=== PATIENT | female | born 1965 | race Caucasian/White ===

== ENCOUNTER 2018-05-03 11:28 | Emergency (ER) | payer OTHER ==
[2018-05-03 12:00] LABS: Absolute Lymphocytes (CBC) 1.4 K/uL (0.7-4.9); Absolute Monocytes 0.5 K/uL (0.1-1.3); Absolute Neutrophil 5.2 K/uL (1.8-8.0); Basophils % 0.5 % (0-1.3); Eosinophils % 1.2 % (0-4.4); Hematocrit 39.4 % (36.0-45.0); Lymphocytes % 19.2 % (15.3-44.8); MCH 30.6 pg (27.0-35.0); MCV 86.9 fL (80-100); MPV 8.3 fL (7.6-11.3); Monocytes % 6.9 % (3.3-12.3); RBC Red Blood Cell Count 4.54 M/uL (3.86-4.86)
[2018-05-03 12:13] LABS: Protime INR 1.02
--- NOTE | 2018-05-03 12:21 | RAD REPORT ---
EXAM DESCRIPTION: CT - Ct Stroke Brain Wo Cont - 05/03/2018 12:01 pm CLINICAL HISTORY: aphasia COMPARISON: 2007 TECHNIQUE: Computed axial tomography of the head was obtained. IV contrast was not requested. All CT scans are performed using dose optimization technique as appropriate and may include automated exposure control or mA/KV adjustment according to patient size. FINDINGS: Suboccipital craniotomy has been performed. 25 millimeter area of increased density within the posterior fossa related to an AVM repair. Low-density within the cerebellum likely gliosis. An acute intracranial bleed is not seen. The ventricles are normal in caliber. No extra-axial fluid collection is noted. Fluid within the sinuses/ mastoids is not seen. IMPRESSION: No acute intracranial abnormality is seen. The exam discussed with Adis in the emergency room proximally 11:47 a.m. May 03, 2018
--- NOTE | 2018-05-03 12:29 | RAD REPORT ---
EXAM DESCRIPTION: CTHead angio05/03/2018 11:54 am CLINICAL HISTORY: aphasia COMPARISON: May 03, [address] TECHNIQUE: CT angiogram of the head was obtained. 50 cc Isovue 370 was intravenously. 3D MIPS recons truction performed All CT scans are performed using dose optimization technique as appropriate and may include automated exposure control or mA/KV adjustment according to patient size. FINDINGS: The basilar, internal carotid, anterior cerebral, middle cerebral and posterior cerebral a rteries are normal caliber. An aneurysm is not seen. origin posterior cerebral artery Postsurgical changes of a posterior fossa AVM repair. No evidence of residual AVM A significant stenosis is not noted. IMPRESSION: No acute abnormality is displayed
[2018-05-03 12:44] LABS: Urine Blood TRACE (NEG); Urine Glucose NEGATIVE (NEG); Urine Protein NEGATIVE (NEG); Urine pH 6.5 (5.0-7.0)
--- NOTE | 2018-05-03 12:45 | RAD REPORT ---
EXAM DESCRIPTION: Fer Single View05/03/2018 12:03 pm CLINICAL HISTORY: cva COMPARISON: March 2017 FINDINGS: The lungs appear clear of acute infiltrate. The heart is normal size IMPRESSION: No acute abnormalities displayed
[2018-05-03] MEDS ORDERED: ASPIRIN 81 MG CHEWABLE TABLET ONE (13:34)
[2018-05-03] MEDS ORDERED: FOLIC ACID 5 MG/ML VIAL ONE (13:37)
--- NOTE | 2018-05-03 13:40 | EDPHYS ---
Physician Documentation [facility] Name: Vanessa Stone Age: 52 yrs Sex: Female : 1965 Arrival Date: 05/03/2018 Time: 11:29 Bed 4 Private MD: Criss Coronado H ED Physician Artur He HPI: 05/03 11:35 This 52 yrs old Female presents to ER via Wheelchair with complaints of jr8 Dizziness, Confusion. 11:35 The patient's problem is reported as a facial droop, on left, dysphasia, slurred jr8 speech, slow speech, expressive aphasia. Onset: The symptoms/episode began/occurred acutely, today, at 09:30. Duration: This was a single incident. The symptoms are alleviated by nothing. The symptoms are aggravated by nothing. Associated signs and symptoms: Pertinent positives: dizziness. Severity of symptoms: At their worst the symptoms were moderate in the emergency department the symptoms have improved mildly. Patient's baseline: Neuro: alert and fully oriented, Motor: no deficits, Ambulation: walks without assistance, Speech: normal. The patient has not experienced similar symptoms in the past. The patient has not recently seen a physician. 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 - Ebola Screening: : No symptoms or risks identified at this time. - Social history:: Smoking status: unknown. ROS: 11:35 Eyes: Negative for injury, pain, redness, and discharge, ENT: Negative for injury, jr8 pain, and discharge, Neck: Negative for injury, pain, and swelling, Cardiovascular: Negative for chest pain, palpitations, and edema, Respiratory: Negative for shortness of breath, cough, wheezing, and pleuritic chest pain, Abdomen/GI: Negative for abdominal pain, nausea, vomiting, diarrhea, and constipation, Back: Negative for injury and pain, MS/Extremity: Negative for injury and deformity, Skin: Negative for injury, rash, and discoloration. 11:35 Neuro: Positive for dizziness, speech changes. Exam: 11:35 Radiologist reports: CT without acute finding jr8 11:35 Head/Face: Normocephalic, atraumatic. Eyes: Pupils equal round and reactive to light, extra-ocular motions intact. Lids and lashes normal. Conjunctiva and sclera are non-icteric and not injected. Cornea within normal limits. Periorbital areas with no swelling, redness, or edema. ENT: Nares patent. No nasal discharge, no septal abnormalities noted. Tympanic membranes are normal and external auditory canals are clear. Oropharynx with no redness, swelling, or masses, exudates, or evidence of obstruction, uvula midline. Mucous membranes moist. Neck: Trachea midline, no thyromegaly or masses palpated, and no cervical lymphadenopathy. Supple, full range of motion without nuchal rigidity, or vertebral point tenderness. No Meningismus. Cardiovascular: Regular rate and rhythm with a normal S1 and S2. No gallops, murmurs, or rubs. Normal PMI, no JVD. No pulse deficits. Respiratory: Lungs have equal breath sounds bilaterally, clear to auscultation and percussion. No rales, rhonchi or wheezes noted. No increased work of breathing, no retractions or nasal flaring. Abdomen/GI: Soft, non-tender, with normal bowel sounds. No distension or tympany. No guarding or rebound. No evidence of tenderness throughout. Back: No spinal tenderness. No costovertebral tenderness. Full range of motion. Skin: Warm, dry with normal turgor. Normal color with no rashes, no lesions, and no evidence of cellulitis. MS/ Extremity: Pulses equal, no cyanosis. Neurovascular intact. Full, normal range of motion. 11:35 Neuro: Orientation: to person, place, time \\T\\ situation. Mentation: is normal, able to follow commands, Memory: is normal, immediate memory is intact, recent memory is intact, remote memory is intact, Cranial nerves: CN I not tested, CN II- XII are normal as tested, visual dee are intact. extraocular movements are intact, Facial palsy and sensory deficits are absent. Nystagmus is absent. Speech is clear and appropriate. Tongue strength is normal, Cerebellar function: normal finger to nose testing, heel to [place] testing is normal, Motor: moves all fours, strength is 5/5 in all extremities, Sensation: no obvious gross deficits, Gait: not tested. seizure activity, is not displayed by the patient, Abnormal movements: there are no abnormal movements. Vital Signs: 11:45 BP 122 / 82; Pulse 61; Resp 16 S; Temp 97.6(TE); Pulse Ox 100% on R/A; Pain 0/10; jl7 12:30 BP 132 / 77; Pulse 66; Resp 16 S; Pulse Ox 98% on R/A; jl7 14:03 BP 140 / 93; Pulse 67; Resp 16 S; Pulse Ox 98% on R/A; jl7 NIH Stroke Scale Scores: 11:35 NIHSS Score: 0 jr8 11:45 NIHSS Score: 0 jl7 MDM: 11:39 Patient medically screened. jr8 13:33 Data reviewed: vital signs, nurses notes, lab test result(s), EKG, radiologic studies, jr8 CT scan, plain films. Data interpreted: Pulse oximetry: on room air is 100 %. Interpretation: normal. Counseling: I had a detailed discussion with the patient and/or guardian regarding: the historical points, exam findings, and any diagnostic results supporting the discharge/admit diagnosis, lab results, radiology results, the need to transfer to another facility, for higher level of care, [facility] does not immediately have the required specialist. ED course: [facility] Neurology Accepted patient for further evaluation of CVA vs. TIA. ED course: Patient near baseline now. Feels much better. stated that she feels just generally weak and "foggy". Because patient has near complete resolution of symptoms. Patient is not a candidate for tPA. Patient will be transferred for MRI for further stroke evaluation . 05/03 11:41 Order name: Basic Metabolic Panel; Complete Time: 12:38 05/03 11:41 Order name: CBC with Diff; Complete Time: 12:38 05/03 11:41 Order name: Protime (+inr); Complete Time: 12:38 05/03 11:41 Order name: Ptt, Activated; Complete Time: 12:38 05/03 11:41 Order name: CT Stroke Brain w/o Contrast; Complete Time: 12:38 05/03 12:17 Order name: Urine Dipstick--Ancillary (enter results); Complete Time: 12:50 gm 05/03 11:41 Order name: Stroke CXR 1 View; Complete Time: 12:50 05/03 11:41 Order name: EKG; Complete Time: 11:42 05/03 11:41 Order name: Accucheck; Complete Time: 12:10 05/03 11:41 Order name: Cardiac monitoring; Complete Time: 12:10 05/03 11:41 Order name: EKG - Nurse/Tech; Complete Time: 12:10 05/03 11:45 Order name: Head angio; Complete Time: 12:38 EDMS 05/03 11:41 Order name: IV Saline Lock; Complete Time: 12:05/03 11:41 Order name: Labs collected and sent; Complete Time: 12:05/03 11:41 Order name: NPO; Complete Time: 12:05/03 11:41 Order name: O2 Per Protocol; Complete Time: 12:09 05/03 11:41 Order name: O2 Sat Monitoring; Complete Time: 12:05/03 11:41 Order name: Stroke Swallow Screen; Complete Time: 12: Administered Medications: 13:55 Drug: Aspirin 81 mg Route: PO; jl7 13:58 Follow up: Response: No adverse reaction jl7 13:55 Drug: foLIC Acid 1 mg Route: IVPB; Site: right antecubital; jl7 13:56 Follow up: Response: No adverse reaction; IV Status: Completed infusion jl7 Point of Care Testing: Blood Glucose: 11:45 Blood Glucose: 102 mg/dL; jl7 Ranges: Critical Glucose Levels:Adult <50 mg/dl or >400 mg/dl <40 mg/dl or >180 mg/dl Disposition: 16:30 Co-signature as Attending Physician, Artur He MD. Disposition: 05/03/18 13:40 Transfer ordered to [facility]. Diagnosis is Cerebral infarction - vs. TIA. - Reason for transfer: Higher level of care. - Accepting physician is Dr. Palomo . - Condition is Stable. - Problem is new. - Symptoms have improved. NIH Stroke Scale - NIH Stroke Score Date: 05/03/2018 Time: 11:35 Total Score = 0 1a. Level of Consciousness (LOC) - 0(Alert) 1b. Level of Consciousness (LOC) (Year \\T\\ Age) - 0(Both) 1c. LOC Commands (Open \\T\\ Closes Eyes/Aircraft Accessories Mechanic) - 0(Both) 2. Best Gaze (Lateral Gaze Paresis) - 0(Normal) 3. Visual Field Loss - 0(No visual loss) 4. Facial Palsy - 0(Normal) 5a. Left Arm: Motor (10-second hold) - 0(No drift) 5b. Right Arm: Motor (10-second hold) - 0(No drift) 6a. Left Leg: Motor (5-second hold - always test supine) - 0(No drift) 6b. Right Leg: Motor (5-second hold - always test supine) - 0(No drift) 7. Limb Ataxia (finger/nose \\T\\ heel/[place] - test with eyes open) - 0(Absent) 8. Sensory Loss (pinprick arms/legs/face) - 0(Normal) 9. Best Language: Aphasia (description/naming/reading) - 0(No aphasia) 10. Dysarthria (speech clarity - read or repeat words) - 0(Normal) 11. Extinction and Inattention (visual/tactile/auditory/spatial/personal) - 0(No abnormality) Initials: jr8 NIH Stroke Scale - NIH Stroke Score Date: 05/03/2018 Time: 11:45 Total Score = 0 1a. Level of Consciousness (LOC) - 0(Alert) 1b. Level of Consciousness (LOC) (Year \\T\\ Age) - 0(Both) 1c. LOC Commands (Open \\T\\ Closes Eyes/Aircraft Accessories Mechanic) - 0(Both) 2. Best Gaze (Lateral Gaze Paresis) - 0(Normal) 3. Visual Field Loss - 0(No visual loss) 4. Facial Palsy - 0(Normal) 5a. Left Arm: Motor (10-second hold) - 0(No drift) 5b. Right Arm: Motor (10-second hold) - 0(No drift) 6a. Left Leg: Motor (5-second hold - always test supine) - 0(No drift) 6b. Right Leg: Motor (5-second hold - always test supine) - 0(No drift) 7. Limb Ataxia (finger/nose \\T\\ heel/[place] - test with eyes open) - 0(Absent) 8. Sensory Loss (pinprick arms/legs/face) - 0(Normal) 9. Best Language: Aphasia (description/naming/reading) - 0(No aphasia) 10. Dysarthria (speech clarity - read or repeat words) - 0(Normal) 11. Extinction and Inattention (visual/tactile/auditory/spatial/personal) - 0(No abnormality) Initials: jl7 Signatures: Dispatcher [employer] EDAlbertina Johns, RN RN aa5 Leeroy Long PA PA jr8 Celi Neff RN RN jl7 Artur He MD MD gs Corrections: (The following items were deleted from the chart) 13:44 13:40 05/03/2018 13:40 Transfer ordered to [facility]. jr8 Diagnosis is Cerebral infarction. Reason for transfer: Higher level of care. Accepting physician is [facility]. Condition is Stable. Problem is new. Symptoms have improved. jr8 15:35 13:44 05/03/2018 13:40 Transfer ordered to [facility]. jl7 Diagnosis is Cerebral infarction - vs. TIA. Reason for transfer: Higher level of care. Accepting physician is Dr. Palomo . Condition is Stable. Problem is new. Symptoms have improved. jr8
--- NOTE | 2018-05-03 13:40 | ER ---
Nurse's Notes [facility] Name: Vanessa Stone Age: 52 yrs Sex: Female : 1965 Arrival Date: 05/03/2018 Time: 11:29 Bed 4 Private MD: Criss Coronado H Diagnosis: Cerebral infarction-vs. TIA Presentation: 05/03 11:29 Presenting complaint: Patient states: "I was driving back from the store and I started aa5 having difficulty thinking of the words and I couldn't remember how to use my phone to call my family". Pt states "I also started drooling a little bit". Aphasia noted at this time. 11:29 Acuity: INO 2 aa5 11:29 Method Of Arrival: Wheelchair aa5 11:33 Transition of care: patient was not received from another setting of care. Onset of aa5 symptoms was May 03, 2018 at 09:30. 11:33 Care prior to arrival: None. aa5 11:35 An acute neurological deficit is present. The charge nurse has been notified. The jl7 patient has been moved to a treatment area. The patients blood glucose was checked before arriving to the hospital and was found to be normal. Risk Assessment: Do you want to hurt yourself or someone else? Patient reports no desire to harm self or others. Initial Sepsis Screen: Does the patient meet any 2 criteria? No. Patient's initial sepsis screen is negative. Does the patient have a suspected source of infection? No. Patient's initial sepsis screen is negative. Triage Assessment: 11:45 The onset of the patients symptoms was May 03, 2018 at 09:30. General: Appears in jl7 no apparent distress. uncomfortable, Behavior is cooperative, appropriate for age, anxious. Pain: Denies pain. EENT: No signs and/or symptoms were reported regarding the EENT system. Neuro: Level of Consciousness is awake, alert, obeys commands, Oriented to person, place, time, situation, Reports Confusion that has resolved at this time.. Cardiovascular: Patient's skin is warm and dry. Respiratory: Airway is patent Respiratory effort is even, unlabored, Respiratory pattern is regular, symmetrical. GI: No signs and/or symptoms were reported involving the gastrointestinal system. : No signs and/or symptoms were reported regarding the genitourinary system. Derm: Skin is pink, warm \\T\\ dry. Musculoskeletal: No signs and/or symptoms reported regarding the musculoskeletal system. 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 - Ebola Screening: : No symptoms or risks identified at this time. - Social history:: Smoking status: unknown. Screenin:45 Abuse screen: Denies threats or abuse. Denies injuries from another. Nutritional sg screening: No deficits noted. Tuberculosis screening: No symptoms or risk factors identified. Never had TB. Fall Risk None identified. 11:50 The patient has not been NPO before screening. The patient is currently on the jl7 following diet: Regular The patient is alert, able to follow commands. The patient does not exhibit slurred or garbled speech The patient is not exhibiting difficulty speaking. The patient does not exhibit difficulty understanding words. The patient is unable to swallow own secretions without drooling or the need for suction. Bedside swallow screening discontinued. Patient kept NPO until cleared by Speech Therapy or Physician. The patient failed the bedside swallow screening. The patient will be kept NPO until cleared by Speech Therapy or Physician. Provider notified of bedside swallow screening results: Leeroy CHAND. Assessment: 11:35 Reassessment: Code Stroke called to ER. iw 11:38 Reassessment: pt transported to CT with Rom SAMUEL. iw 11:45 The patient has not been NPO before screening. The patient is currently on the jl7 following diet: regular The patient is alert, and able to follow commands. The patient does not exhibit slurred or garbled speech. The patient is not exhibiting difficulty speaking. The patient does not exhibit difficulty understanding words. The patient is unable to swallow own secretions without drooling or the need for suction. Bedside swallow screening discontinued. Patient kept NPO until cleared by Speech Therapy or Physician. stopped eval stopped eval The patient failed the bedside swallow screening. The patient will be kept NPO until cleared by Speech Therapy or Physician. Provider notified of bedside swallow screening results: Leeroy CHAND. T-PA (Activase) Screening: Indications: No evidence of intracranial hemorrhage or CT of head and no evidence of peripheral hemorrhage or recent CVA: Yes. 11:45 Pain: Denies pain. Neuro: Level of Consciousness is awake, alert, obeys commands, jl7 Oriented to person, place, time, situation, Reports Confusion that has resolved. 11:48 Reassessment: Dr. Guerrier reports negative CT. iw 12:45 Reassessment: Patient appears in no apparent distress at this time. Patient and/or jl7 family updated on plan of care and expected duration. Pain level reassessed. Patient is alert, oriented x 3, equal unlabored respirations, skin warm/dry/pink. 13:45 Reassessment: Patient appears in no apparent distress at this time. Patient and/or jl7 family updated on plan of care and expected duration. Pain level reassessed. Patient is alert, oriented x 3, equal unlabored respirations, skin warm/dry/pink. 14:45 Reassessment: No changes from previously documented assessment. Patient and/or family jl7 updated on plan of care and expected duration. Pain level reassessed. Patient is alert, oriented x 3, equal unlabored respirations, skin warm/dry/pink. Report given to receiving nurse, family updated. Vital Signs: 11:45 BP 122 / 82; Pulse 61; Resp 16 S; Temp 97.6(TE); Pulse Ox 100% on R/A; Pain 0/10; jl7 12:30 BP 132 / 77; Pulse 66; Resp 16 S; Pulse Ox 98% on R/A; jl7 14:03 BP 140 / 93; Pulse 67; Resp 16 S; Pulse Ox 98% on R/A; jl7 NIH Stroke Scale Scores: 11:35 NIHSS Score: 0 jr8 11:45 NIHSS Score: 0 jl7 ED Course: 11:29 Patient arrived in ED. mr 11:29 Criss Coronado DO is Private Physician. mr 11:29 Arm band placed on. aa5 11:39 [facility]oy Long [facility]. jr8 11:39 Artur He MD is Attending Physician. jr8 11:42 Triage completed. aa5 11:45 Patient has correct armband on for positive identification. Placed in gown. Bed in low jl7 position. Call light in reach. Side rails up X2. silhouette artist on. Pulse ox on. NIBP on. Warm blanket given. 11:48 Initial lab(s) drawn, by me, sent to lab. Inserted saline lock: 22 gauge in right sg antecubital area, using aseptic technique. Blood collected. 11:51 CT completed. Patient moved to CT via stretcher. Patient moved back from CT. cw1 11:55 Head angio In Process Unspecified. EDMS 11:55 Rom Coello, RN is Primary Nurse. sg 12:01 X-ray completed. Portable x-ray completed in exam room. Patient tolerated procedure ka well. 12:01 CT Stroke Brain w/o Contrast In Process Unspecified. EDMS 12:01 Stroke CXR 1 View In Process Unspecified. EDMS 12:01 CT completed. Patient tolerated procedure well. Patient moved back from CT. 13:12 initiated transfer with Rocio at [facility]. 13:[address] Ellison with Leeroy CHAND for patient consult transfer. 13:41 connected the hospitalist from [facility] with Leeroy CHAND for patient transfer consultation. 13:49 administrative approval was given by rocio valencia trans. coord. /Dr Colby accepted the patient in transfer/ Pt going to [address]. report to be called to [phone]. 15:29 No provider procedures requiring assistance completed. Patient transferred, IV remains jl7 in place. intact, No redness/swelling at site. Administered Medications: 13:55 Drug: Aspirin 81 mg Route: PO; jl7 13:58 Follow up: Response: No adverse reaction jl7 13:55 Drug: foLIC Acid 1 mg Route: IVPB; Site: right antecubital; jl7 13:56 Follow up: Response: No adverse reaction; IV Status: Completed infusion jl7 Point of Care Testing: Blood Glucose: 11:45 Blood Glucose: 102 mg/dL; jl7 Ranges: Outcome: 13:40 ER care complete, transfer ordered by . whitney 15:29 Transferred by ground EMS to [facility], Transfer form completed. jl7 X-rays sent w/ patient. 15:29 Condition: stable 15:29 Discharge instructions given to patient, family, Instructed on the need for transfer, Demonstrated understanding of instructions. 15:35 Patient left the ED. jl7 NIH Stroke Scale - NIH Stroke Score Date: 05/03/2018 Time: 11:35 Total Score = 0 1a. Level of Consciousness (LOC) - 0(Alert) 1b. Level of Consciousness (LOC) (Year \\T\\ Age) - 0(Both) 1c. LOC Commands (Open \\T\\ Closes Eyes/Hand Funnel Coater) - 0(Both) 2. Best Gaze (Lateral Gaze Paresis) - 0(Normal) 3. Visual Field Loss - 0(No visual loss) 4. Facial Palsy - 0(Normal) 5a. Left Arm: Motor (10-second hold) - 0(No drift) 5b. Right Arm: Motor (10-second hold) - 0(No drift) 6a. Left Leg: Motor (5-second hold - always test supine) - 0(No drift) 6b. Right Leg: Motor (5-second hold - always test supine) - 0(No drift) 7. Limb Ataxia (finger/nose \\T\\ heel/[place] - test with eyes open) - 0(Absent) 8. Sensory Loss (pinprick arms/legs/face) - 0(Normal) 9. Best Language: Aphasia (description/naming/reading) - 0(No aphasia) 10. Dysarthria (speech clarity - read or repeat words) - 0(Normal) 11. Extinction and Inattention (visual/tactile/auditory/spatial/personal) - 0(No abnormality) Initials: jr8 NIH Stroke Scale - NIH Stroke Score Date: 05/03/2018 Time: 11:45 Total Score = 0 1a. Level of Consciousness (LOC) - 0(Alert) 1b. Level of Consciousness (LOC) (Year \\T\\ Age) - 0(Both) 1c. LOC Commands (Open \\T\\ Closes Eyes/Hand Funnel Coater) - 0(Both) 2. Best Gaze (Lateral Gaze Paresis) - 0(Normal) 3. Visual Field Loss - 0(No visual loss) 4. Facial Palsy - 0(Normal) 5a. Left Arm: Motor (10-second hold) - 0(No drift) 5b. Right Arm: Motor (10-second hold) - 0(No drift) 6a. Left Leg: Motor (5-second hold - always test supine) - 0(No drift) 6b. Right Leg: Motor (5-second hold - always test supine) - 0(No drift) 7. Limb Ataxia (finger/nose \\T\\ heel/w[place] - test with eyes open) - 0(Absent) 8. Sensory Loss (pinprick arms/legs/face) - 0(Normal) 9. Best Language: Aphasia (description/naming/reading) - 0(No aphasia) 10. Dysarthria (speech clarity - read or repeat words) - 0(Normal) 11. Extinction and Inattention (visual/tactile/auditory/spatial/personal) - 0(No abnormality) Initials: jl7 Signatures: Dispatcher [employer] EDRom Chen, RN RN Jolene Muñoz mr Nba, Olga Kaplan, RN Albertina Serrato RN RN aa5 Maryana Ibrahim cw1 Leeroy Long PA PA jr8 Shelia Rios Jahala RN RN jl7 Soila Ernandez gm Corrections: (The following items were deleted from the chart) 11:33 Presenting complaint: Patient states: "I was driving back from the store [facility] and I started having difficulty thinking of the words and I couldn't remember how to use my phone to call my family". Pt states "I also started drooling a little bit". Aphasia noted at this time. 11:33 Method Of Arrival: Wheelchair [facility] 11:33 Acuity: INO 2 [facility]
--- NOTE | 2018-05-03 14:15 | P.CNS ---
Date of Consult: 05/03/18 Reason for Consult: ER evaluation Requesting Physician: Joaquin Long Primary Care Provider: PCP-Dr. Coronado Chief Complaint: Expressive aphasia, slurred speech History of Present Illness: 52-year-old female presented emergency room with expressive aphasia, slurred speech and drooling to the left side. Symptoms started around 930. They persisted. She came to the ER around 1944. Patient was evaluated in the emergency room. Symptoms improved. I was consulted to evaluate for possible admission. Patient with history of hypertension on aspirin and Avapro. Patient with history of AVM requiring surgery CBC, BMP unremarkable. CT scan negative. CT angiogram shows no acute abnormality. Patient denies any chest pain, fever, shortness of breath, nausea, vomiting, or rectal bleeding. Allergies Tetracyclines Allergy (Unverified 03/28/17 21:14) Unknown Home medications list reviewed: Yes - Past Medical/Surgical History Diabetic: No -: Hypertension -: History of AVM status post surgery Past Surgical History: Patient denies surgical history Psychosocial/ Personal History: Patient is single. She has 2 children. She works as a caregiver - Family History Mother Medical History: Hypertension - Social History Smoking Status: Never smoker Alcohol use: Yes CD- Drugs: No Caffeine use: No Place of Residence: Home Review of Systems General: Weakness, As per HPI Eyes: Unremarkable ENT: As per HPI Respiratory: Unremarkable Cardiovascular: Unremarkable Gastrointestinal: Unremarkable Genitourinary: Unremarkable Musculoskeletal: As per HPI Integumentary: Unremarkable Neurological: Change in Speech, As per HPI Lymphatics: Unremarkable Physical Examination General: Alert, In no apparent distress, Oriented x3, Cooperative HEENT: Atraumatic, Normocephalic, PERRLA, Mucous membr. moist/pink, Other ( Minimal left-sided droop) Neck: Supple, No Thyromegaly Respiratory: Clear to auscultation bilaterally, Normal air movement Cardiovascular: Normal pulses, Regular rate/rhythm Gastrointestinal: Normal bowel sounds, Soft and benign, Non-distended, No ascites, No tenderness, No masses, No rebound, No guarding Musculoskeletal: No erythema, No tenderness, No warmth Integumentary: No tenderness/swelling, No erythema, No warmth, No cyanosis Neurological: Normal speech, Normal strength at 5/5 x4 extr, Normal tone, Normal affect, Other (Patient had minimal left-sided facial droop. Patient had incoordination on [id number] on the right side. ), Abnormal strength Laboratory Data (last 24 hrs) 05/03/18 11:47: PT 12.0, INR 1.02, APTT 32.9 05/03/18 11:47: WBC 7.2, Hgb 13.9, Hct 39.4, Plt Count 251 05/03/18 11:47: Sodium 141, Potassium 4.0, BUN 14, Creatinine 0.70, Glucose 102 Conclusions/Impression: Impression: Expressive aphasia, left-sided droop, slurred speech and incoordination of finger point to point on the right side likely TIA versus CVA Hypertension Plan: Results and findings discussed with patient and family. There is no neurology backup. After options explained family and patient requested that she be transferred to higher level of care center with neuro backup. Case discussed at length with ER provider. Patient will be transferred. Patient will need stroke protocol MRI, carotid Doppler, echocardiogram. Patient will need to be started on aspirin 81 mg daily, Plavix 75 mg daily, Lipitor 40 mg daily. Patient may continue with her Avapro. Further assessment and evaluation to be done at higher level care center. Time Spent Managing Pts care (In Minutes): 55
--- NOTE | 2018-05-05 07:07 | EKG ---
Test Date: 2018-05-03 Test Time: 12:07:27 Shake Cutter: SARANYA MEASUREMENT RESULTS: Intervals: Rate: 61 TN: 170 QRSD: 94 QT: 406 QTc: 408 [place]: P: 36 TN: 170 QRS: -5 T: 11 INTERPRETIVE STATEMENTS: Normal sinus rhythm with sinus arrhythmia Normal ECG Compared to ECG 03/28/2017 20:31:13 Sinus bradycardia no longer present T-wave abnormality no longer present Electronically Signed On 05-05-18 07:04:03 FILTRATION OPERATOR by Marc Self
== END 2018-05-03 15:35 | disposition short-term general hospital (02) ==
LOC: ER 11:28
DX: I63.9 Cerebral infarction, unspecified (principal); I10 Essential (primary) hypertension; Z88.1 Allergy status to other antibiotic agents
CPT/HCPCS: 36415; 70450; 70496; 71045; 80048; 81003; 82962; 85025; 85610; 85730; 93005; 96374; 99285; Q9967